=== PATIENT | female | born 1940 | race Caucasian/White ===

== ENCOUNTER 2017-02-04 10:52 | Day surgery (SDC) | payer MEDICARE ==
[~2017-02-04] VITALS: Ht 156.2 cm; Wt 54.0 kg
[~2017-02-04 10:52] MED LIST: BENA20TA6 PO; MIDAZOLAM INJ 2 MG/2 ML VIAL (J2250) As Ordered ONE; OFLOXACIN 0.3 % (OCUFLOX) OPTH SOL 5ML OS ONE; PHENYLEPHRINE 2.5% OPHTH SOL 2ML OS ONE; PROPARACAINE 0.5% OPHTH SOL 15ML OS ONE; TROPICAMIDE 1% OPHTH SOLN 2ML OS ONE; fentaNYL 100 MCG/2 ML INJECTION (J3010) As Ordered ONE
[2017-02-04] MEDS ORDERED: ACETYLCHOLINE OPHTH SOLN 1% 2ML (MIOCHOL-E) As Ordered ONE (12:13)
[2017-02-04] MEDS ORDERED: BALANCED SALT IRRIGATION SOLUTION 500ML BAG (FOR OR EYE MACHINE) As Ordered ONE (12:13)
[2017-02-04] MEDS ORDERED: POVIDONE-IODINE 5% OPHTH PREP SOL 30ML As Ordered ONE (12:13)
[2017-02-04] MEDS ORDERED: CEFUROXIME 1MG/0.1ML INTRACAMERAL INJ As Ordered ONE (12:14)
[2017-02-04] MEDS ORDERED: LIDOCAINE 0.75%/EPINEPHRINE 0.025% IN BSS 1ML SYR INTRACAMERAL (OR ONLY) As Ordered ONE (12:14)
[2017-02-04] MEDS ORDERED: TETRACAINE 0.5% OPHTH SOLN 4ML As Ordered ONE (12:14)
[2017-02-04] MEDS ORDERED: DUOVISC (0.50ML VISCOAT/0.55ML PROVISC) OPHTH KIT As Ordered ONE (12:14)
[2017-02-04] MEDS ORDERED: ONDANSETRON 4MG/2ML VIAL (J2405) As Ordered ONE (12:30)
[2017-02-04 13:15] VITALS: BP 142/63
--- NOTE | 2017-02-25 08:08 | RO ---
DATE OF PROCEDURE: 02/04/2017 PREOPERATIVE DIAGNOSIS: Visually significant nuclear sclerotic cataract left eye. POSTOPERATIVE DIAGNOSIS: Visually significant nuclear sclerotic cataract left eye. PROCEDURE: Cataract extraction with use of phacoemulsification and placement of intraocular lens, AU00T0, 19.0, left eye. SURGEON: Gian Melchor DO UNDERWEAR TRIMMER: ANESTHESIA: Local with monitored anesthesia care (MAC). COMPLICATIONS: None. POSTOPERATIVE CONDITION: Stable. INDICATION FOR SURGERY: Blurred vision left eye affecting patient's activities of daily living. DESCRIPTION OF PROCEDURE: The patient was seen in the preoperative area and properly identified. The correct operative eye was identified and marked. Attention was turned to that eye. The patient received topical antibiotics in the preoperative area. The patient then received topical dilating drops consisting of tropicamide and phenylephrine. The patient was then transferred to the operating room. The correct side was re-identified. The patient received topical anesthetics and antibiotics on the surface of the eye. The eye was prepped and draped in a sterile fashion. The upper and lower eyelids were isolated with Tegaderm tape, and the lids were held open with an adjustable speculum. Using a sideport blade, a paracentesis incision was made. Intraocular preservative-free lidocaine was then injected into the anterior chamber. Viscoelastic was then injected into the anterior chamber through the paracentesis. Using a 2.4 mm sharp-tipped keratome, the anterior chamber was entered via a temporal clear corneal incision. A continuous curvilinear capsulorrhexis was created with the aid of a 26-gauge cystotome and Utrata forceps. Hydrodissection was performed with balanced salt solution (BSS) on a blunt cannula until the nucleus was freely mobile. The crystalline lens was phacoemulsified and aspirated. Additional cohesive viscoelastic was placed into the capsular bag to deepen it. A AU00T0, 19.0 lens was placed into the capsular bag and confirmed by visualizing the continuous curvilinear capsulorrhexis. Additional irrigation and aspiration was used to remove cortical material and remaining viscoelastic. The clear corneal incision was hydrated with BSS on a blunt cannula. The lens was well positioned. The incisions were then tested for leaks and found to be negative. The eye was then palpated for appropriate pressure and adjusted accordingly with BSS. The eyelid speculum was carefully removed. A shield was placed. The patient tolerated the procedure well and was discharged to the recovery unit in a stable condition. MTDD
== END 2017-02-04 13:36 | disposition home or self-care (01) ==
LOC: M SDC 10:52
PROVIDERS: ATTEND Ophthalmology
DX: H25.12 Age-related nuclear cataract, left eye (principal); I10 Essential (primary) hypertension; Z79.899 Other long term (current) drug therapy
CPT/HCPCS: 66984; J2250; J2405; J3010; V2632

== ENCOUNTER 2017-02-18 08:33 | Day surgery (SDC) | payer MEDICARE ==
[~2017-02-18] VITALS: Ht 157.5 cm; Wt 54.9 kg
[~2017-02-18 08:33] MED LIST changes: -MIDAZOLAM INJ 2 MG/2 ML VIAL (J2250) As Ordered ONE; +OFLOXACIN 0.3 % (OCUFLOX) OPTH SOL 5ML OD ONE; -OFLOXACIN 0.3 % (OCUFLOX) OPTH SOL 5ML OS ONE; +PHENYLEPHRINE 2.5% OPHTH SOL 2ML OD ONE; -PHENYLEPHRINE 2.5% OPHTH SOL 2ML OS ONE; +PROPARACAINE 0.5% OPHTH SOL 15ML OD ONE; -PROPARACAINE 0.5% OPHTH SOL 15ML OS ONE; +TROPICAMIDE 1% OPHTH SOLN 2ML OD ONE; -TROPICAMIDE 1% OPHTH SOLN 2ML OS ONE; -fentaNYL 100 MCG/2 ML INJECTION (J3010) As Ordered ONE
[2017-02-18] MEDS ORDERED: LR 1,000 ML IV ONE (08:45)
[2017-02-18] MEDS ORDERED: MIDAZOLAM INJ 2 MG/2 ML VIAL (J2250) As Ordered ONE (08:51)
[2017-02-18] MEDS ORDERED: fentaNYL 100 MCG/2 ML INJECTION (J3010) As Ordered ONE (08:51)
[2017-02-18] MEDS ORDERED: CEFUROXIME 1MG/0.1ML INTRACAMERAL INJ As Ordered ONE (09:05)
[2017-02-18] MEDS ORDERED: ACETYLCHOLINE OPHTH SOLN 1% 2ML (MIOCHOL-E) As Ordered ONE (09:05)
[2017-02-18] MEDS ORDERED: DUOVISC (0.50ML VISCOAT/0.55ML PROVISC) OPHTH KIT As Ordered ONE (09:05)
[2017-02-18] MEDS ORDERED: LIDOCAINE 0.75%/EPINEPHRINE 0.025% IN BSS 1ML SYR INTRACAMERAL (OR ONLY) As Ordered ONE (09:05)
[2017-02-18] MEDS ORDERED: BALANCED SALT IRRIGATION SOLUTION 500ML BAG (FOR OR EYE MACHINE) As Ordered ONE (09:05)
[2017-02-18] MEDS ORDERED: POVIDONE-IODINE 5% OPHTH PREP SOL 30ML As Ordered ONE (09:05)
[2017-02-18] MEDS ORDERED: ONDANSETRON 4MG/2ML VIAL (J2405) As Ordered ONE (09:10)
[2017-02-18 10:22] VITALS: BP 127/66
--- NOTE | 2017-02-22 19:16 | RO ---
DATE OF PROCEDURE: 02/18/2017 PREOPERATIVE DIAGNOSIS: Visually significant nuclear sclerotic cataract right eye. POSTOPERATIVE DIAGNOSIS: Visually significant nuclear sclerotic cataract right eye. PROCEDURE: Cataract extraction with use of phacoemulsification and placement of intraocular lens, AU00T0 20.0, right eye. SURGEON: Gian Melchor DO SENIOR INFRASTRUCTURE ARCHITECT: ANESTHESIA: Local with monitored anesthesia care (MAC). COMPLICATIONS: None. POSTOPERATIVE CONDITION: Stable. INDICATION FOR SURGERY: Blurred vision right eye affecting patient's activities of daily living. DESCRIPTION OF PROCEDURE: The patient was seen in the preoperative area and properly identified. The correct operative eye was identified and marked. Attention was turned to that eye. The patient received topical antibiotics in the preoperative area. The patient then received topical dilating drops consisting of tropicamide and phenylephrine. The patient was then transferred to the operating room. The correct side was re-identified. The patient received topical anesthetics and antibiotics on the surface of the eye. The eye was prepped and draped in a sterile fashion. The upper and lower eyelids were isolated with Tegaderm tape, and the lids were held open with an adjustable speculum. Using a sideport blade, a paracentesis incision was made. Intraocular preservative-free lidocaine was then injected into the anterior chamber. Viscoelastic was then injected into the anterior chamber through the paracentesis. Using a 2.4mm sharp-tipped keratome, the anterior chamber was entered via a temporal clear corneal incision. A continuous curvilinear capsulorrhexis was created with the aid of a 26-gauge cystotome and Utrata forceps. Hydrodissection was performed with balanced salt solution (BSS) on a blunt cannula until the nucleus was freely mobile. The crystalline lens was phacoemulsified and aspirated. Additional cohesive viscoelastic was placed into the capsular bag to deepen it. Am AU00T0 20.0 lens was placed into the capsular bag and confirmed by visualizing the continuous curvilinear capsulorrhexis. Additional irrigation and aspiration was used to remove cortical material and remaining viscoelastic. The clear corneal incision was hydrated with BSS on a blunt cannula. The lens was well positioned. The incisions were then tested for leaks and found to be negative. The eye was then palpated for appropriate pressure and adjusted accordingly with BSS. The eyelid speculum was carefully removed. A shield was placed. The patient tolerated the procedure well and was discharged to the recovery unit in a stable condition. [facility]
== END 2017-02-18 10:20 | disposition home or self-care (01) ==
LOC: M SDC 08:33
PROVIDERS: ATTEND Ophthalmology
DX: H25.11 Age-related nuclear cataract, right eye (principal); I10 Essential (primary) hypertension
CPT/HCPCS: 66984; J2250; J2405; J3010; V2632

== ENCOUNTER 2022-06-16 16:13 | Inpatient (IN) | payer MEDICARE ==
[~2022-06-16] VITALS: Ht 157.5 cm; Wt 54.8 kg
[~2022-06-16 16:13] MED LIST changes: -OFLOXACIN 0.3 % (OCUFLOX) OPTH SOL 5ML OD ONE; -PHENYLEPHRINE 2.5% OPHTH SOL 2ML OD ONE; -PROPARACAINE 0.5% OPHTH SOL 15ML OD ONE; -TROPICAMIDE 1% OPHTH SOLN 2ML OD ONE
[2022-06-16] MEDS ORDERED: DICY10CA13 PO (16:28)
[2022-06-16] MEDS ORDERED: ACID1CAP5 PO (16:28)
[2022-06-16] MEDS ORDERED: PARO5TAB PO (16:28)
[2022-06-16] MEDS ORDERED: B-122500 PO (16:28)
[2022-06-16] MEDS ORDERED: NOXI1TAB PO (16:28)
[2022-06-16] MEDS ORDERED: ALEN70TA82 PO (16:28)
[2022-06-16] MEDS ORDERED: [UNRECOGNIZED DRUG - OTHER] PO (16:28)
[2022-06-16] MEDS ORDERED: GI COCKTAIL 50ML BTL(HYOSCYAMINE/MAALOX/LIDOCAINE VISCOUS)(1:3:1) PO ONE (18:10)
[2022-06-16] MEDS ORDERED: ONDANSETRON 4MG 2ML VIAL IV ONE (18:10)
[2022-06-16] MEDS ORDERED: FAMOTIDINE 20MG/2ML VIAL IVP ONE (18:10)
[2022-06-16 18:41] LABS: LIPASE 28 U/L (12-53)
[2022-06-16] MEDS ORDERED: DEXTROSE 50% 50ML SYRINGE IV STA (18:43)
[2022-06-16] MEDS ORDERED: KCL 10MEQ/100ML SWI (KRUN) 10 MEQ in IV 1 EA IV ONE (18:45)
[2022-06-16 18:50] LABS: ALKALINE PHOSPHATASE 66 U/L (46-116); ALT/SGPT 14 U/L (7.0-40); AST/SGOT 32 U/L (<34); BASO % 0.4 % (0.0-1.0); BILIRUBIN,DIRECT 0.3 MG/DL (<0.4); BILIRUBIN,TOTAL 0.8 MG/DL (0.3-1.2); BLOOD UREA NITROGEN 12 MG/DL (9-23); CALCIUM LEVEL 9.2 MG/DL (8.3-10.6); CARBON DIOXIDE LEVEL 29 MMOL/L (20-31); CHLORIDE LEVEL 101 MMOL/L (98-107); EOS # 0.1 10^3/uL (0.0-0.5); EOS % 1.8 % (0.0-3.0); GLUCOSE, FASTING 79 MG/DL (74-106); HEMATOCRIT 38.6 % (36.0-47.0); HEMOGLOBIN 11.7 g/dl (12.0-15.5); LYMPH # 1.5 10^3/uL (1.5-5.0); LYMPH % 26.4 % (24.0-44.0); MEAN CORPUSCULAR HEMOGLOBIN 26.5 pg (27.0-33.0); MEAN CORPUSCULAR HGB CONC 30.3 g/dl (32.0-36.5); MEAN CORPUSCULAR VOLUME 87.3 fl (80.0-96.0); MONO % 18.2 % (2.0-8.0); NEUTROPHILS # 2.9 10^3/uL (1.5-8.5); NEUTROPHILS % 52.8 % (36.0-66.0); PLATELET COUNT, AUTOMATED 184 10^3/uL (150-450); POTASSIUM SERUM 4.3 MMOL/L (3.5-5.1); RED BLOOD COUNT 4.42 10^6/uL (4.00-5.40); SODIUM LEVEL 136 MMOL/L (136-145); TOTAL PROTEIN 7.4 G/DL (5.7-8.2); WHITE BLOOD COUNT 5.5 10^3/uL (4.0-10.0)
[2022-06-16] MEDS ORDERED: ISOVUE-370 76% 100ML VIAL As Ordered ONE (18:52)
[2022-06-16 19:02] LABS: INR 1.13; PROTHROMBIN TIME 14.7 SECONDS (12.5-14.5)
[2022-06-16 19:03] LABS: PARTIAL THROMBOPLASTIN TIME 33.7 SECONDS (24.8-34.2)
[2022-06-16] MEDS ORDERED: NS 1,000 ML IV ONE (19:20)
[2022-06-16 19:49] LABS: CREATININE FOR GFR 0.84 MG/DL (0.55-1.30); GLOMERULAR FILTRATION RATE > 60.0 (>32)
[2022-06-16] MEDS ORDERED: hydrALAZINE 20MG/ML 1ML VIAL IV ONE (19:55)
[2022-06-16] MEDS ORDERED: ACETAMINOPHEN TAB 650MG DOSE (2X325MG) PO PRN (20:05)
[2022-06-16] MEDS ORDERED: D5W/0.45% SODIUM CHLORIDE 1,000 ML IV SCH (20:05)
[2022-06-16] MEDS ORDERED: DEXTROSE 50% 50ML SYRINGE IV PRN (20:55)
[2022-06-16] MEDS ORDERED: GLUCOSE 4GM CHEW TABLET PO PRN (20:55)
[2022-06-16] MEDS ORDERED: GLUCAGON INJ 1MG VIAL SC PRN (20:55)
[2022-06-16] MEDS: MIRALAX *UNIT DOSE* 17GM PACKET PO SCH (21:00)
[2022-06-16] MEDS ORDERED: VITA500T40 PO (21:05)
[2022-06-16] MEDS ORDERED: ASCO500T PO (21:05)
[2022-06-16] MEDS: PANTOPRAZOLE 40MG VIAL IV SCH (21:05)
[2022-06-16] MEDS ORDERED: LABETALOL 100MG/20ML VIAL IV STA (21:06)
[2022-06-16] MEDS ORDERED: ACET-907 PO (21:08)
[2022-06-16] MEDS ORDERED: D-10TAB2 PO (21:08)
[2022-06-16] MEDS ORDERED: OS-CTAB PO (21:08)
[2022-06-16] MEDS ORDERED: HOME MED LIST COMPLETE! XX SCH (21:10)
[2022-06-16 21:59] VITALS: BP 136/60
[2022-06-16 22:00] VITALS: BP 143/67
[2022-06-16 22:03] VITALS: BP 138/63
[2022-06-16 22:05] VITALS: BP 138/70
[2022-06-16 23:00] VITALS: BP 130/80
[2022-06-17] VITALS (13 sets, daily range): BP systolic 130–196; BP diastolic 63–121
[2022-06-17 01:00] LABS: HEMATOCRIT 32.2 % (36.0-47.0); HEMOGLOBIN 10.1 g/dl (12.0-15.5)
[2022-06-17 04:50] LABS: HEMATOCRIT 31.5 % (36.0-47.0); HEMOGLOBIN 9.9 g/dl (12.0-15.5); MEAN CORPUSCULAR HEMOGLOBIN 26.9 pg (27.0-33.0); MEAN CORPUSCULAR HGB CONC 31.4 g/dl (32.0-36.5); MEAN CORPUSCULAR VOLUME 85.6 fl (80.0-96.0); PLATELET COUNT, AUTOMATED 175 10^3/uL (150-450); RED BLOOD COUNT 3.68 10^6/uL (4.00-5.40); WHITE BLOOD COUNT 5.5 10^3/uL (4.0-10.0)
[2022-06-17 05:14] LABS: ALKALINE PHOSPHATASE 47 U/L (46-116); ALT/SGPT 10 U/L (7.0-40); AST/SGOT 22 U/L (<34); BILIRUBIN,TOTAL 0.6 MG/DL (0.3-1.2); BLOOD UREA NITROGEN 8 MG/DL (9-23); CALCIUM LEVEL 8.1 MG/DL (8.3-10.6); CARBON DIOXIDE LEVEL 29 MMOL/L (20-31); CHLORIDE LEVEL 105 MMOL/L (98-107); CREATININE FOR GFR 0.81 MG/DL (0.55-1.30); GLOMERULAR FILTRATION RATE > 60.0 (>32); GLUCOSE, FASTING 104 MG/DL (74-106); MAGNESIUM LEVEL 1.8 MG/DL (1.8-2.4); POTASSIUM SERUM 3.8 MMOL/L (3.5-5.1); SODIUM LEVEL 139 MMOL/L (136-145); TOTAL PROTEIN 5.5 G/DL (5.7-8.2)
[2022-06-17] MEDS: LACTOBACILLUS ACIDOPHILUS CAP (BACID) PO SCH (08:09)
[2022-06-17] MEDS: MIRALAX *UNIT DOSE* 17GM PACKET PO SCH ×3 (08:09→21:18)
[2022-06-17] MEDS: CYANOCOBALAMIN 500 MCG TAB PO SCH (08:10)
[2022-06-17] MEDS: PARoxetine 10MG TABLET PO SCH (08:10)
[2022-06-17] MEDS: ASCORBIC ACID 500 MG TAB PO SCH (08:10)
[2022-06-17] MEDS: VITAMIN D 1,000 INTERNATIONAL UNITS TABLET PO SCH (08:10)
[2022-06-17] MEDS: PANTOPRAZOLE 40MG VIAL IV SCH ×2 (08:15→21:18)
[2022-06-17] MEDS ORDERED: BENAZEPRIL 20 MG TAB PO SCH (09:00)
[2022-06-17] MEDS ORDERED: LACTULOSE 20GM/30ML SYRUP UDC PO SCH (09:00)
[2022-06-17] MEDS ORDERED: NS 0.45% 1,000 ML IV SCH (10:00)
[2022-06-17] MEDS: metroNIDAZOLE (FLAGYL) 500MG TABLET PO SCH ×3 (11:11→21:17)
[2022-06-17] MEDS: CIPROFLOXACIN 500MG TABLET PO SCH ×2 (11:11→17:02)
[2022-06-17] MEDS: DICYCLOMINE 10 MG CAP PO SCH ×3 (12:18→21:17)
[2022-06-17] MEDS ORDERED: hydroCHLOROthiazide 12.5 MG CAPSULE PO ONE (15:00)
[2022-06-17] MEDS: BENAZEPRIL 20 MG TAB PO SCH (16:07)
[2022-06-17] MEDS ORDERED: amLODIPine 5 MG TAB PO ONE (17:20)
[2022-06-17] MEDS ORDERED: ONDANSETRON 4MG 2ML VIAL IV PRN (17:30)
[2022-06-17] MEDS ORDERED: hydrALAZINE 20MG/ML 1ML VIAL IV ONE (17:45)
[2022-06-17] MEDS ORDERED: hydrALAZINE 20MG/ML 1ML VIAL IV PRN (18:55)
[2022-06-18] VITALS (7 sets, daily range): BP systolic 135–167; BP diastolic 63–79
[2022-06-18] MEDS ORDERED: hydrALAZINE 20MG/ML 1ML VIAL IV PRN (00:55)
[2022-06-18 04:39] LABS: HEMATOCRIT 31.8 % (36.0-47.0); HEMOGLOBIN 9.9 g/dl (12.0-15.5); MEAN CORPUSCULAR HEMOGLOBIN 26.5 pg (27.0-33.0); MEAN CORPUSCULAR HGB CONC 31.1 g/dl (32.0-36.5); MEAN CORPUSCULAR VOLUME 85.3 fl (80.0-96.0); PLATELET COUNT, AUTOMATED 179 10^3/uL (150-450); RED BLOOD COUNT 3.73 10^6/uL (4.00-5.40); WHITE BLOOD COUNT 6.2 10^3/uL (4.0-10.0)
[2022-06-18 05:04] LABS: BLOOD UREA NITROGEN 7 MG/DL (9-23); CALCIUM LEVEL 8.4 MG/DL (8.3-10.6); CARBON DIOXIDE LEVEL 29 MMOL/L (20-31); CHLORIDE LEVEL 102 MMOL/L (98-107); CREATININE FOR GFR 0.85 MG/DL (0.55-1.30); GLOMERULAR FILTRATION RATE > 60.0 (>32); GLUCOSE, FASTING 105 MG/DL (74-106); MAGNESIUM LEVEL 1.8 MG/DL (1.8-2.4); PHOSPHORUS LEVEL 3.7 MG/DL (2.4-5.1); POTASSIUM SERUM 3.6 MMOL/L (3.5-5.1); SODIUM LEVEL 137 MMOL/L (136-145)
[2022-06-18] MEDS: CIPROFLOXACIN 500MG TABLET PO SCH ×2 (06:19→17:10)
[2022-06-18] MEDS: PANTOPRAZOLE 40MG VIAL IV SCH ×2 (08:09→20:53)
[2022-06-18] MEDS: LACTOBACILLUS ACIDOPHILUS CAP (BACID) PO SCH (08:09)
[2022-06-18] MEDS: DICYCLOMINE 10 MG CAP PO SCH ×4 (08:09→20:53)
[2022-06-18] MEDS: BENAZEPRIL 20 MG TAB PO SCH (08:11)
[2022-06-18] MEDS: PARoxetine 10MG TABLET PO SCH (08:11)
[2022-06-18] MEDS: metroNIDAZOLE (FLAGYL) 500MG TABLET PO SCH ×3 (08:11→20:41)
[2022-06-18] MEDS: MIRALAX *UNIT DOSE* 17GM PACKET PO SCH ×2 (08:12→20:42)
[2022-06-18] MEDS: VITAMIN D 1,000 INTERNATIONAL UNITS TABLET PO SCH (08:12)
[2022-06-18] MEDS: CYANOCOBALAMIN 500 MCG TAB PO SCH (08:12)
[2022-06-18] MEDS: ASCORBIC ACID 500 MG TAB PO SCH (08:12)
[2022-06-18] MEDS ORDERED: MIRALAX *UNIT DOSE* 17GM PACKET PO SCH (09:00)
[2022-06-18] MEDS ORDERED: amLODIPine 5 MG TAB PO SCH ×2 (09:00→12:00)
[2022-06-18] MEDS ORDERED: LACTULOSE 20GM/30ML SYRUP UDC PO SCH ×2 (09:00→12:00)
[2022-06-18] MEDS ORDERED: hydroCHLOROthiazide 12.5 MG CAPSULE PO SCH (09:00)
[2022-06-18] MEDS ORDERED: BISACODYL 10MG SUPP PR ONE (12:00)
[2022-06-18] MEDS ORDERED: MOM 30ML SUSPENSION UDC PO ONE (12:00)
[2022-06-18] MEDS: DOCUSATE SODIUM 100MG CAPSULE PO SCH ×2 (13:45→20:41)
[2022-06-18] MEDS: BISACODYL 10MG SUPP PR SCH ×2 (13:47→20:43)
[2022-06-18] MEDS ORDERED: BENAZEPRIL 20 MG TAB PO ONE (14:00)
[2022-06-18] MEDS: HEPARIN SOD (PORCINE) 5000UNITS/ML 1ML VIAL/SYRINGE SQ SCH ×2 (14:59→21:54)
[2022-06-18] MEDS ORDERED: ONDANSETRON 4MG TAB PO PRN (19:15)
[2022-06-18] MEDS: ONDANSETRON 4MG TAB PO SCH (20:30)
[2022-06-19] VITALS: BP 158/70
[2022-06-19 04:00] VITALS: BP 160/80
[2022-06-19 04:43] LABS: HEMATOCRIT 30.9 % (36.0-47.0); HEMOGLOBIN 9.7 g/dl (12.0-15.5); MEAN CORPUSCULAR HEMOGLOBIN 26.7 pg (27.0-33.0); MEAN CORPUSCULAR HGB CONC 31.4 g/dl (32.0-36.5); MEAN CORPUSCULAR VOLUME 85.1 fl (80.0-96.0); PLATELET COUNT, AUTOMATED 177 10^3/uL (150-450); RED BLOOD COUNT 3.63 10^6/uL (4.00-5.40); WHITE BLOOD COUNT 5.7 10^3/uL (4.0-10.0)
[2022-06-19 05:20] LABS: BLOOD UREA NITROGEN 13 MG/DL (9-23); CALCIUM LEVEL 8.1 MG/DL (8.3-10.6); CARBON DIOXIDE LEVEL 30 MMOL/L (20-31); CHLORIDE LEVEL 103 MMOL/L (98-107); CREATININE FOR GFR 0.89 MG/DL (0.55-1.30); GLOMERULAR FILTRATION RATE > 60.0 (>32); GLUCOSE, FASTING 99 MG/DL (74-106); MAGNESIUM LEVEL 1.8 MG/DL (1.8-2.4); PHOSPHORUS LEVEL 3.4 MG/DL (2.4-5.1); POTASSIUM SERUM 3.5 MMOL/L (3.5-5.1); SODIUM LEVEL 139 MMOL/L (136-145)
[2022-06-19] MEDS ORDERED: LACTULOSE 20GM/30ML SYRUP UDC PO SCH (06:00)
[2022-06-19] MEDS: CIPROFLOXACIN 500MG TABLET PO SCH (06:21)
[2022-06-19] MEDS: HEPARIN SOD (PORCINE) 5000UNITS/ML 1ML VIAL/SYRINGE SQ SCH (06:21)
[2022-06-19 08:00] VITALS: BP 178/80
[2022-06-19] MEDS: ONDANSETRON 4MG TAB PO SCH (08:30)
[2022-06-19] MEDS: DOCUSATE SODIUM 100MG CAPSULE PO SCH (09:00)
[2022-06-19] MEDS ORDERED: BENAZEPRIL 20 MG TAB PO SCH (09:00)
[2022-06-19] MEDS: metroNIDAZOLE (FLAGYL) 500MG TABLET PO SCH (09:00)
[2022-06-19] MEDS: BISACODYL 10MG SUPP PR SCH (09:00)
[2022-06-19] MEDS: DICYCLOMINE 10 MG CAP PO SCH (09:26)
[2022-06-19] MEDS: MIRALAX *UNIT DOSE* 17GM PACKET PO SCH (09:26)
[2022-06-19] MEDS: PARoxetine 10MG TABLET PO SCH (09:27)
[2022-06-19] MEDS: VITAMIN D 1,000 INTERNATIONAL UNITS TABLET PO SCH (09:27)
[2022-06-19] MEDS: ASCORBIC ACID 500 MG TAB PO SCH (09:27)
[2022-06-19] MEDS: CYANOCOBALAMIN 500 MCG TAB PO SCH (09:28)
[2022-06-19] MEDS: PANTOPRAZOLE 40MG VIAL IV SCH (09:28)
[2022-06-19] MEDS: LACTOBACILLUS ACIDOPHILUS CAP (BACID) PO SCH (09:28)
[2022-06-19 10:54] VITALS: BP 130/74
[2022-06-19] MEDS ORDERED: BENA20TA PO (11:26)
[2022-06-19] MEDS ORDERED: METR-265 PO (11:26)
[2022-06-19] MEDS ORDERED: AMLO1TAB25 PO (11:26)
[2022-06-19] MEDS ORDERED: CIPR-249 PO (11:26)
[2022-06-19] MEDS ORDERED: META28PO PO (11:26)
[2022-06-19] MEDS ORDERED: HYDR-3490 PO (11:26)
[2022-06-19] MEDS ORDERED: MIRA1POW3 PO (11:26)
[2022-06-19 14:00] VITALS: BP 138/72
== END 2022-06-19 15:15 | disposition home health service (06) | DRG 392 ==
LOC: M ED 16:13 → M ED INP 20:05 → M ICU 21:45
PROVIDERS: ADMIT Family Medicine; ATTEND Internal Medicine
DX: K58.1 Irritable bowel syndrome with constipation (principal); K92.2 Gastrointestinal hemorrhage, unspecified; K92.1 Melena; I10 Essential (primary) hypertension; K59.00 Constipation, unspecified; F41.9 Anxiety disorder, unspecified; F32.A Depression, unspecified; K63.89 Other specified diseases of intestine; Z79.899 Other long term (current) drug therapy; R19.7 Diarrhea, unspecified

== ENCOUNTER → 2022-07-02 | Outpatient (REF) | payer MEDICARE ==
[~2022-07-02] MED LIST changes: +ACET-907 PO; +ACID1CAP5 PO; +ALEN70TA82 PO; +AMLO1TAB25 PO; +ASCO500T PO; +B-122500 PO; +BENA20TA PO; +CIPR-249 PO; +D-10TAB2 PO; +DICY10CA13 PO; +HYDR-3490 PO; +META28PO PO; +METR-265 PO; +MIRA1POW3 PO; +NOXI1TAB PO; +OS-CTAB PO; +PARO5TAB PO; +VITA500T40 PO; +[UNRECOGNIZED DRUG - OTHER] PO
[2022-07-02 17:07] LABS: PERCENT SATURATION 34.2 % (13.2-45.0)
[2022-07-02 17:09] LABS: FERRITIN 271.7 NG/ML (7.3-270.7)
== END ==
LOC: M LAB REF 16:12
PROVIDERS: ATTEND Internal Medicine
DX: D64.9 Anemia, unspecified (principal)

== ENCOUNTER → 2023-08-17 | Outpatient (REF) | payer MEDICARE ==
[~2023-08-17] MED LIST changes: +DICY-61 PO; -DICY10CA13 PO; -MIRA1POW3 PO; +MIRA33506 PO
== END ==
LOC: M LAB REF 18:08
PROVIDERS: ATTEND Internal Medicine
DX: M81.0 Age-related osteoporosis without current pathological fracture (principal)

== ENCOUNTER → 2024-08-22 | Outpatient (REF) | payer MEDICARE | LOC: M LAB REF 17:28 | PROVIDERS: ATTEND Internal Medicine | DX: R71.8 Other abnormality of red blood cells (principal) ==